=== PATIENT | female | born 1955 | race Caucasian/White ===

== ENCOUNTER → 2016-07-13 | Outpatient (CLI) | payer OTHER ==
--- NOTE | 2016-07-13 12:24 | DIAGNOSTIC IMAGING REPORT ---
KUB CLINICAL HISTORY: Constipation. FINDINGS: 2 AP supine abdominal radiographs are correlated with abdominal ultrasound dated 09/22/2015. There is a nonobstructed abdominal bowel gas pattern noting moderate colonic fecal retention. No evidence of intraperitoneal free air is seen on these supine views. Calcified phleboliths are noted in the pelvis. There is no radiographic evidence of nephrolithiasis. The skeletal structures are osteopenic. There is lumbosacral spondylosis and scoliosis. The bony pelvis appears intact. IMPRESSION: Nonobstructed abdominal bowel gas pattern noting moderate colonic fecal retention. Electronically signed by: Ej Cardona M.D. 07/13/2016 12:23 PM Dictated Date/Time: 07/13/2016 12:21 PM
[2016-07-13 17:53] LABS: BLOOD UREA NITROGEN 9 mg/dl (7-18); BUN/CREATININE RATIO 11.8 (10-20); CALCIUM 8.8 mg/dl (8.5-10.1); CARBON DIOXIDE 26 mmol/L (21-32); CHLORIDE 101 mmol/L (98-107); CREATININE 0.79 mg/dl (0.60-1.20); GLUCOSE 77 mg/dl (70-99); POTASSIUM 4.4 mmol/L (3.5-5.1); SODIUM 136 mmol/L (136-145)
== END | disposition home or self-care (01) ==
LOC: C.RADPV 11:42
PROVIDERS: ATTEND Nurse Practitioner
DX: K59.00 Constipation, unspecified (principal); E78.00 Pure hypercholesterolemia, unspecified

== ENCOUNTER → 2016-10-17 | Outpatient (CLI) | payer SELFPAY | END | disposition home or self-care (01) | LOC: C.LAB 08:25 | PROVIDERS: ATTEND Family Medicine ==

== ENCOUNTER → 2017-04-04 | Outpatient (CLI) | payer OTHER ==
[2017-04-04 17:46] LABS: BASO % 0.2 %; BASO ABS # 0.01 K/uL (0-0.2); COMPLETE YES; EOS % 1.2 %; HEMATOCRIT 39.8 % (37-47); IG% 0.2 %; LYMPH % 28.2 %; MEAN CORPUSCULAR HEMOGLOBIN 30.5 pg (25-34); MEAN CORPUSCULAR HGB CONC 33.9 g/dl (32-36); MEAN PLATELET VOLUME 9.8 fL (7.4-10.4); MONO % 8.1 %; NEUT % 62.1 %; PLATELET COUNT 314 K/uL (130-400); RED BLOOD COUNT 4.42 M/uL (4.2-5.4); WHITE BLOOD COUNT 6.03 K/uL (4.8-10.8)
[2017-04-04 18:02] LABS: ALT/SGPT 27 U/L (12-78); AST/SGOT 20 U/L (15-37); BLOOD UREA NITROGEN 16 mg/dl (7-18); BUN/CREATININE RATIO 22.4 (10-20); CALCIUM 8.8 mg/dl (8.5-10.1); CARBON DIOXIDE 28 mmol/L (21-32); CHLORIDE 102 mmol/L (98-107); GLUCOSE 90 mg/dl (70-99); POTASSIUM 4.3 mmol/L (3.5-5.1); SODIUM 136 mmol/L (136-145)
[2017-04-04 18:04] LABS: ALB/GLOB RATIO 0.9 (0.9-2); ALKALINE PHOSPHATASE 70 U/L (45-117)
== END | disposition home or self-care (01) ==
LOC: C.LABPVFM 14:29
PROVIDERS: ATTEND Psychiatry & Neurology Neurology
DX: G35 Multiple sclerosis (principal)

== ENCOUNTER 2021-05-01 13:43 | Observation (INO) ==
[2021-05-01] MEDS ORDERED: SODIUM CHLORIDE 0.9% 1000ML 500 ML IV ONE (14:45)
--- NOTE | 2021-05-01 15:23 | Emergency Department Note ---
Impression & Plan COVID-19, Syncope and collapse, Closed right ankle fracture ED Provider Note INFORMANT: Patient ED PROVIDER(S): Liam Reyes MD CHIEF COMPLAINT: Syncope PLAN: Disposition: Admitted Condition: Good Outpatient prescription management: none Referral: None MEDICAL DECISION MAKING: Patient presented emergency room noting syncopal episode. She is Covid positive. Unfortunately with one of the episode she did fall and fractured her ankle. She was in a splint. This was taken down and her ankle was examined. There were no open wounds to suggest open fracture. She had moderate swelling of the lateral malleolus. X-ray imaging did confirm the distal fibula fracture. No dislocation. The patient had an unremarkable ECG and cardiac monitoring. Chest x-ray was unremarkable. CT imaging was performed that she had an elevated D-dimer. It was signs of Covid pneumonia but no sign of thromboembolic disease. Given the multiple syncopal episode the patient to be admitted. Consultation was [facility] with [facility], Dr. Holloway. Patient was admitted. Triage Nursing notes reviewed and agree them. Vital Signs: reviewed and remarkable for no significant abnormalities Differential diagnosis: Complication of COVID-19, fracture, dislocation, vasovagal event, dehydration, infection, hypoglycemia, electrolyte abnormalities, cardiac sources, intracerebral event, pulmonary embolism, seizure, toxicologic, neurologic, as well as other pathologies. Diagnostics interpreted by me: ECG: Twelve-lead ECG reveals a normal sinus rhythm at 69 bpm. Low voltage QRS. No interval prolongation. No ST elevation or depression. Cardiac Monitoring: Cardiac monitoring ordered by me: The patient was placed on continuous cardiac monitoring and observed. It revealed a normal sinus rhythm at 79beats per minute without ectopy or evidence of dysrhythmia. Imaging studies: X-ray and CT scan as above. HPI: The patient is a 66 year old female who presents to the Emergency Room with complaints of syncope. This started yesterday and is noted to be the second episode.. The patient also notes the following associated symptoms, right ankle pain and swelling. The patient has splinted for relieving factors. Current pain is rated as 4/10. Patient states that she was diagnosed with COVID-19 on the 18th, 3 days ago. She is been feeling lightheaded and weak. She passed out and injured her right ankle. She went to [facility] and was diagnosed with an ankle fracture today. She had a second syncopal episode. She does note a mild abrasion to the left knee but no other injury sustained. 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 Pt denies headache, fevers, chills, diaphoresis, visual changes, neck pain, chest pain, breathing difficulties, nausea, vomiting, abdominal pain, back pain, melena, hematochezia, urinary symptoms, numbness, focal weakness, lymphadenopathy, rash, or other complaints. ROS: See above HPI for pertinent positives & negatives. A total of 10 systems reviewed and were otherwise negative. PAST MEDICAL HISTORY:See Below , high cholesterol PAST SURGICAL HISTORY:See Below, FAMILY HISTORY:See Below SOCIAL HISTORY:See Below, HOME MEDICATIONS:See Below ALLERGIES:See Below VITALS:See Below PHYSICAL EXAMINATION: GENERAL: Awake, alert, well-appearing, in no distress HENT: Normocephalic, atraumatic. Oropharynx unremarkable. EYES: Normal conjunctiva. Sclera non-icteric. NECK: Inspection normal. Non-tender. Supple. No nuchal rigidity. FROM. No masses. RESPIRATORY: Clear to auscultation. No wheezes. No rales. Normal respiratory effort. CARDIAC: Normal rate. Normal rhythm. No murmurs. No rubs. Extremities warm and well perfused. Pulses equal. No JVD. GI: Soft, non-distended. No tenderness to palpation. No rebound or guarding. No masses. RECTAL: Deferred. MUSCULOSKELETAL: Upper extremities are atraumatic. Chest examination reveals no tenderness. The back is symmetrical on inspection without obvious abnormality. There is no CVA tenderness to palpation. No joint edema. There is a small abrasion noted to the anterior aspect of the left knee. The remainder of the left lower extremity is unremarkable and atraumatic. No bony tenderness there. Examination the right lower extremity reveals ecchymosis, swelling and tenderness over the lateral aspect of the right ankle. There is tenderness of the right malleoli are prominence. No foot tenderness or fifth metatarsal tenderness. No proximal fibula tenderness. Remainder of the right lower extremity is atraumatic and nontender. LOWER EXTREMITIES: Calves are equal size bilaterally and non-tender. No other edema except as noted above No other discoloration. NEURO: Normal sensorium. No sensory or motor deficits noted. SKIN: No rash or jaundice noted. Liam Reyes MD Past Med/Surg History Medical History Hemorrhoids Hyperlipidemia Impacted cerumen of right ear Plantar fascia syndrome Screening-pulmonary TB Urinary symptom or sign Surgical History H/O breast surgery History of surgical procedure Family History Mother Cancer Lymphoma Hodgkin's lymphoma Father Cardiac disorder Myocardial infarction Denies family history of Ovarian cancer Prostate cancer Breast cancer Colorectal cancer Social History Smoking Status: Never smoker Second Hand Exposure: No; Hx Alcohol Use: No Hx Substance Use: No Preferred Language: [place] marital status: Current Living Situation: Spouse current occupational status: employed current occupation: [employer] Feels Safe at Home: Yes caffeine: Yes (coffee) 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 Care, Regularly: Yes Physical Activity Frequency: Does not Exercise Seatbelt Use: always Sunscreen Use: Yes Allergies Allergies Allergy/AdvReac Type Severity Reaction Status Date / Time Sulfa (Sulfonamide Allergy Verified 05/01/21 15:40 Antibiotics) Home Meds Home Medications Medication Instructions Recorded Confirmed sennosides 8.6 mg tablet 8.6 mg PO DAILY PRN 10/01/20 05/01/21 omega-3 fatty acids 1,000 mg 1,000 mg PO DAILY 10/26/20 05/01/21 capsule (Fish Oil Concentrate) zinc sulfate 50 mg zinc (220 mg) 50 mg PO DAILY 10/26/20 05/01/21 capsule (Orazinc) Ivermectin 250 mg PO DAILY 05/01/21 05/01/21 ascorbic acid (vitamin C) 500 mg 500 mg PO QDL 05/01/21 05/01/21 tablet (C-500) guaifenesin 600 mg tablet, 600 mg PO BID 05/01/21 05/01/21 extended release 12 hr (Mucinex) Previous Rx's Medication Instructions Recorded cholecalciferol (vitamin D3) 125 5,000 units PO DAILY #30 cap 01/13/19 mcg (5,000 unit) capsule hydrocortisone 2.5 % topical cream 1 appln TOP TID PRN #20 gm 12/23/19 escitalopram oxalate 20 mg tablet 20 mg PO DAILY #30 tab 01/28/21 interferon beta-1a 30 mcg/0.5 mL 30 mcg IM WK #1 ea 04/01/21 intramuscular pen kit (Avonex) Results & Data (ED) Vital Signs Vital Signs - 24 hr 05/01/21 14:07 05/01/21 14:10 05/01/21 14:30 Temperature 37.3 C Temperature Source Oral Pulse Rate 79 72 79 Pulse Rate from SpO2 Sensor 72 79 Pulse Rhythm Respiratory Rate 20 17 17 Blood Pressure 142/55 H 123/74 Blood Pressure Mean 84 90 Pulse Oximetry 97 97 98 Oxygen Delivery Method Room Air Sepsis Recent Fever Within 48 Hours No Sepsis New/Unexplained Change in Mental Status No Sepsis Action Taken by Nursing No Action Required 05/01/21 14:44 05/01/21 15:00 05/01/21 15:30 Temperature Temperature Source Pulse Rate 82 67 78 Pulse Rate from SpO2 Sensor 67 76 Pulse Rhythm Regular Respiratory Rate 18 8 L 23 Blood Pressure 109/74 129/55 L Blood Pressure Mean 85 79 Pulse Oximetry 98 99 99 Oxygen Delivery Method Room Air Sepsis Recent Fever Within 48 Hours Sepsis New/Unexplained Change in Mental Status Sepsis Action Taken by Nursing 05/01/21 16:00 05/01/21 16:30 05/01/21 17:00 Temperature Temperature Source Pulse Rate 73 72 67 Pulse Rate from SpO2 Sensor 73 72 67 Pulse Rhythm Respiratory Rate 19 18 20 Blood Pressure 134/69 134/72 128/98 Blood Pressure Mean 90 92 108 Pulse Oximetry 99 100 98 Oxygen Delivery Method Sepsis Recent Fever Within 48 Hours Sepsis New/Unexplained Change in Mental Status Sepsis Action Taken by Nursing 05/01/21 18:00 05/01/21 18:30 05/01/21 19:00 Temperature Temperature Source Pulse Rate 79 80 Pulse Rate from SpO2 Sensor Pulse Rhythm Respiratory Rate 22 22 19 Blood Pressure Blood Pressure Mean Pulse Oximetry Oxygen Delivery Method Sepsis Recent Fever Within 48 Hours Sepsis New/Unexplained Change in Mental Status Sepsis Action Taken by Nursing 05/01/21 19:30 05/01/21 20:00 05/01/21 20:30 Temperature Temperature Source Pulse Rate 80 81 79 Pulse Rate from SpO2 Sensor 80 79 Pulse Rhythm Respiratory Rate 17 18 19 Blood Pressure 150/99 H 154/95 H Blood Pressure Mean 116 114 Pulse Oximetry 98 97 Oxygen Delivery Method Sepsis Recent Fever Within 48 Hours Sepsis New/Unexplained Change in Mental Status Sepsis Action Taken by Nursing 05/01/21 21:00 05/01/21 21:30 Temperature Temperature Source Pulse Rate 82 79 Pulse Rate from SpO2 Sensor 81 Pulse Rhythm Respiratory Rate 25 H 22 Blood Pressure 136/93 153/85 H Blood Pressure Mean 107 107 Pulse Oximetry 97 Oxygen Delivery Method Sepsis Recent Fever Within 48 Hours Sepsis New/Unexplained Change in Mental Status Sepsis Action Taken by Nursing Laboratory Data Result diagrams: 05/01/21 15:30 05/01/21 15:30 Lab Results 05/01/21 05/01/21 05/01/21 Range/Units 15:30 15:30 15:30 WBC 3.67 L (4.8-10.8) K/uL RBC 4.52 (4.2-5.4) M/uL Hgb 13.8 (12.0-16.0) g/dL Hct 40.3 (37-47) % MCV 89.2 (80-100) fL MCH 30.5 (25-34) pg MCHC 34.2 (32-36) g/dL RDW Std Deviation 40.1 (36.4-46.3) fL RDW Coeff of Anthony 12.4 (11.5-14.5) % Plt Count 182 (130-400) K/uL MPV 9.8 (7.4-10.4) fL Immature Gran % (Auto) 0.3 % Neut % (Auto) 84.7 % Lymph % (Auto) 10.9 % [place] % (Auto) 4.1 % Eos % (Auto) 0.0 % Baso % (Auto) 0.0 % Neut # (Auto) 3.11 (1.4-6.5) K/uL Lymph # (Auto) 0.40 L (1.2-3.4) K/uL [place] # (Auto) 0.15 (0.11-0.59) K/uL Eos # (Auto) 0.00 (0-0.5) K/uL Baso # (Auto) 0.00 (0-0.2) K/uL Immature Gran # (Auto) 0.01 (0.00-0.02) K/uL D-Dimer 2350 H* (0-500) ug/L FEU Sodium 132 L (136-145) mmol/L Potassium 4.2 (3.5-5.1) mmol/L Chloride 97 L (98-107) mmol/L Carbon Dioxide 25 (21-32) mmol/L Anion Gap 10.0 (3-11) BUN 9 (7-18) mg/dl Creatinine 0.64 (0.6-1.2) mg/dl Est Cr Clr Drug Dosing Not Reportable Est GFR ( Amer) 109.3 ml/min Est GFR (Non-Af Amer) 94.3 ml/min BUN/Creatinine Ratio 13.8 (10-20) Glucose 101 H (70-99) mg/dl Calcium 8.2 L (8.5-10.1) mg/dl Magnesium 2.3 (1.8-2.4) mg/dl Total Bilirubin 0.5 (0.2-1) mg/dl AST 27 (15-37) U/L ALT 24 (12-78) U/L Alkaline Phosphatase 80 (45-117) U/L Troponin I < 0.015 (0-0.045) ng/ml Total Protein 7.1 (6.4-8.2) gm/dl Albumin 3.4 (3.4-5.0) gm/dl Globulin 3.7 (2.5-4.0) gm/dl Albumin/Globulin Ratio 0.9 (0.9-2) TSH 1.170 (0.300-4.500) uIu/ml Urine Color Urine Appearance (Clear) Urine pH (4.5-7.5) Ur Specific [place] (1.000-1.030) Urine Protein (Negative) Urine Glucose (UA) (Negative) Urine Ketones (Negative) Urine Blood (Negative) Urine Nitrite (Negative) Urine Bilirubin (Negative) Urine Urobilinogen (Negative) Ur Leukocyte Esterase (Negative) Urine WBC (Auto) (0-5) /hpf Urine RBC (Auto) (0-4) /hpf U Hyaline Cast (Auto) (0-5) /lpf U Epithel Cells (Auto) (0-5) /lpf Urine Bacteria (Auto) (Negative) 05/01/21 Range/Units 16:50 WBC (4.8-10.8) K/uL RBC (4.2-5.4) M/uL Hgb (12.0-16.0) g/dL Hct (37-47) % MCV (80-100) fL MCH (25-34) pg MCHC (32-36) g/dL RDW Std Deviation (36.4-46.3) fL RDW Coeff of Anthony (11.5-14.5) % Plt Count (130-400) K/uL MPV (7.4-10.4) fL Immature Gran % (Auto) % Neut % (Auto) % Lymph % (Auto) % [place] % (Auto) % Eos % (Auto) % Baso % (Auto) % Neut # (Auto) (1.4-6.5) K/uL Lymph # (Auto) (1.2-3.4) K/uL [place] # (Auto) (0.11-0.59) K/uL Eos # (Auto) (0-0.5) K/uL Baso # (Auto) (0-0.2) K/uL Immature Gran # (Auto) (0.00-0.02) K/uL D-Dimer (0-500) ug/L FEU Sodium (136-145) mmol/L Potassium (3.5-5.1) mmol/L Chloride (98-107) mmol/L Carbon Dioxide (21-32) mmol/L Anion Gap (3-11) BUN (7-18) mg/dl Creatinine (0.6-1.2) mg/dl Est Cr Clr Drug Dosing Est GFR ( Amer) ml/min Est GFR (Non-Af Amer) ml/min BUN/Creatinine Ratio (10-20) Glucose (70-99) mg/dl Calcium (8.5-10.1) mg/dl Magnesium (1.8-2.4) mg/dl Total Bilirubin (0.2-1) mg/dl AST (15-37) U/L ALT (12-78) U/L Alkaline Phosphatase (45-117) U/L Troponin I (0-0.045) ng/ml Total Protein (6.4-8.2) gm/dl Albumin (3.4-5.0) gm/dl Globulin (2.5-4.0) gm/dl Albumin/Globulin Ratio (0.9-2) TSH (0.300-4.500) uIu/ml Urine Color Yellow Urine Appearance Clear (Clear) Urine pH 6.5 (4.5-7.5) Ur Specific [place] 1.007 (1.000-1.030) Urine Protein Negative (Negative) Urine Glucose (UA) Negative (Negative) Urine Ketones Trace H (Negative) Urine Blood Negative (Negative) Urine Nitrite Positive A (Negative) Urine Bilirubin Negative (Negative) Urine Urobilinogen Negative (Negative) Ur Leukocyte Esterase Negative (Negative) Urine WBC (Auto) 1-5 (0-5) /hpf Urine RBC (Auto) 0-4 (0-4) /hpf U Hyaline Cast (Auto) 0 (0-5) /lpf U Epithel Cells (Auto) 10-20 H (0-5) /lpf Urine Bacteria (Auto) 2+ H (Negative) Administered Medications Discontinued Medications Sodium Chloride (Nss 1000ml) 500 mls @ 999 mls/hr IV .Q31M ONE Stop: 05/01/21 15:15 Last Infusion: 05/01/21 16:19 Dose: 0 mls/hr Documented by: [id number] Infusion: 05/01/21 16:08 Dose: 0 mls/hr Documented by: [id number] Admin: 05/01/21 15:33 Dose: 999 mls/hr Documented by: [id number] Sodium Chloride (Nss 1000ml) 1,000 mls @ 125 mls/hr IV .Q8H STA Stop: 05/01/21 22:44 Last Admin: 05/01/21 21:22 Dose: 125 mls/hr Documented by: [id number] Ioversol (Optiray 320 125ml) 118 ml IV ONCE ONE Stop: 05/01/21 17:39 Last Admin: 05/01/21 17:38 Dose: 118 ml Documented by: [id number] Imaging Data Radiologist's Impression: Ankle X-Ray 05/01/21 14:44 XR ankle RT min 3V routine HISTORY: 66 years-old Female fall, righ lateral malleolar TTP. ?fx acute pain of the right ankle status post trauma COMPARISON: None TECHNIQUE: 3 views of the right ankle FINDINGS: Mildly demineralized appearance the bones. There is an acute oblique fracture of the distal fibular metaphysis with fracture extension to the level of the ankle mortise. Lateral displacement of 2 mm. Moderate anterolateral soft tissue swelling with small joint effusion. Mild osteoarthritis of the midfoot with corticated ossifications of the dorsal navicular and talar neck. IMPRESSION: Acute minimally displaced oblique fracture of the distal fibula. ACT 112: Negative or not required by law. The above report was generated using voice recognition software. It may contain grammatical, syntax or spelling errors. Electronically signed by: Glenn Foster M.D. 05/01/2021 3:31 PM Chest X-Ray 05/01/21 14:44 XR chest 1V portable HISTORY: 66 years-old Female weakness acute weakness COMPARISON: Chest radiograph 07/04/2018 TECHNIQUE: Portable AP view of the chest FINDINGS: The cardiomediastinal and hilar silhouettes are within normal limits. 1.2 cm nodular density projects over the lateral left upper lung is likely external to the patient. No pneumothorax, pleural effusion, airspace consolidation or overt pulmonary edema. Linear lucency at the left lung apex is likely artifactual. No acute fracture. IMPRESSION: No acute process. ACT 112: Negative or not required by law. The above report was generated using voice recognition software. It may contain grammatical, syntax or spelling errors. Electronically signed by: Glenn Foster M.D. 05/01/2021 3:37 PM Chest CTA 05/01/21 16:32 CT angio chest PE protocol CT DOSE: 357.77 mGy.cm HISTORY: 66 years-old Female with PE. Acute shortness breath with weakness. COVID Positive. TECHNIQUE: Multiple CTA images of the chest were obtained after the intravenous administration of 118 ml Optiray. Coronal and sagittal MIPS were obtained from the axial data set and were submitted for review. All measurements were obtained according to NASCET criteria. A dose lowering technique was utilized adhering to the principles of ALARA. COMPARISON: Chest radiograph of same day, CT abdomen and pelvis 01/31/2019 FINDINGS: CTA: The heart is mildly enlarged. No pericardial effusion. Mild fusiform dilation of the descending thoracic measures 4.0 x 4.0 cm. No dissection. Unremarkable pulmonary artery. No pulmonary emboli. CT CHEST: No thyroid nodule or adenopathy. The inferior right lung base is only partially imaged. No pneumothorax or pleural effusion. Subpleural patchy bilateral groundglass opacities are noted within a multilobar distribution. No suspicious pulmonary nodules or masses. The central airways are patent. The spleen measures the upper limits of normal in size. Hypodense foci suggestive of cysts are noted within liver measuring up to 3.3 cm. Unremarkable soft tissues. There is no acute fracture. Mild compression of the T11 segment is likely chronic. IMPRESSION: 1. No pulmonary emboli. 2. Mild patchy bilateral subpleural predominant groundglass opacities are compatible with viral pneumonia. 3. Mild fusiform dilation of the ascending thoracic aorta, 4.0 x 4.0 cm. ACT 112: Negative or not required by law. The above report was generated using voice recognition software. It may contain grammatical, syntax or spelling errors. Electronically signed by: Glenn Foster M.D. 05/01/2021 6:12 PM Discharge Plan Visit Data Chief Complaint: Ankle Pain Stated Complaint: fracture ED Provider: Liam Reyes Discharge Problem: COVID-19, Syncope and collapse, Closed right ankle fracture Forms Stand Alone Forms: [facility] Prescriptions Prescriptions: No Action cholecalciferol (vitamin D3) 5,000 unit capsule 5,000 units PO DAILY Qty: 30 RF: 5 escitalopram oxalate 20 mg tablet 20 mg PO DAILY Qty: 30 RF: 5 Avonex 30 mcg/0.5 mL pen injector kit 30 mcg IM WK Qty: 1 RF: 11 sennosides 8.6 mg tablet 8.6 mg PO DAILY PRN (Reason: Constipation) RF: 0 omega-3 fatty acids [Fish Oil Concentrate] 1,000 mg capsule 1,000 mg PO DAILY RF: 0 zinc sulfate [Orazinc] 50 mg zinc (220 mg) capsule 50 mg PO DAILY RF: 0 hydrocortisone 2.5 % cream 1 appln TOP TID PRN (Reason: skin irritation) Qty: 20 RF: 1 ascorbic acid (vitamin C) [C-500] 500 mg Tablet 500 mg PO QDL RF: 0 guaifenesin [Mucinex] 600 mg Tablet Extended Release 12hr 600 mg PO BID RF: 0 Ivermectin 250 mg PO DAILY RF: 0 Referrals Referrals: Mally Leblanc CRNP [Primary Care Provider] -
--- NOTE | 2021-05-01 15:32 | XRay Report ---
XR ankle RT min 3V routine HISTORY: 66 years-old Female fall, righ lateral malleolar TTP. ?fx acute pain of the right ankle sta tus post trauma COMPARISON: None TECHNIQUE: 3 views of the right ankle FINDINGS: Mildly demineralized appearance the bones. There is an acute oblique fracture of the distal fibular m etaphysis with fracture extension to the level of the ankle mortise. Lateral displacement of 2 mm. Mo derate anterolateral soft tissue swelling with small joint effusion. Mild osteoarthritis of the midfo ot with corticated ossifications of the dorsal navicular and talar neck. IMPRESSION: Acute minimally displaced oblique fracture of the distal fibula. ACT 112: Negative or not required by law. The above report was generated using voice recognition software. It may contain grammatical, syntax o r spelling errors. Electronically signed by: Glenn Foster M.D. 05/01/2021 3:31 PM
--- NOTE | 2021-05-01 15:39 | XRay Report ---
XR chest 1V portable HISTORY: 66 years-old Female weakness acute weakness COMPARISON: Chest radiograph 07/04/2018 TECHNIQUE: Portable AP view of the chest FINDINGS: The cardiomediastinal and hilar silhouettes are within normal limits. 1.2 cm nodular density projects over the lateral left upper lung is likely external to the patient. No pneumothorax, pleural effusio n, airspace consolidation or overt pulmonary edema. Linear lucency at the left lung apex is likely ar tifactual. No acute fracture. IMPRESSION: No acute process. ACT 112: Negative or not required by law. The above report was generated using voice recognition software. It may contain grammatical, syntax o r spelling errors. Electronically signed by: Glenn Foster M.D. 05/01/2021 3:37 PM
[2021-05-01 15:47] LABS: Hematocrit (blood only) 40.3 % (37-47); Hemoglobin 13.8 g/dL (12.0-16.0); Immature Granulocytes # (auto) 0.01 K/uL (0.00-0.02); Immature Granulocytes % (auto) 0.3 %; Lymphocytes % (auto) 10.9 %; Mean Corpuscular Hemoglobin 30.5 pg (25-34); Mean Corpuscular Hgb Conc 34.2 g/dL (32-36); Mean Corpuscular Volume 89.2 fL (80-100); Mean Platelet Volume 9.8 fL (7.4-10.4); Monocytes # (auto) 0.15 K/uL (0.11-0.59); Monocytes % (auto) 4.1 %; Neutrophils # (auto) 3.11 K/uL (1.4-6.5); Neutrophils % (auto) 84.7 %; Platelet Count 182 K/uL (130-400); RDW Coefficient of Variation 12.4 % (11.5-14.5); RDW Standard Deviation 40.1 fL (36.4-46.3); Red Blood Count 4.52 M/uL (4.2-5.4); White Blood Count 3.67 K/uL (4.8-10.8)
[2021-05-01 16:01] LABS: Alanine Aminotransferase 24 U/L (12-78); Albumin Level 3.4 gm/dl (3.4-5.0); Aspartate Aminotransferase 27 U/L (15-37); BUN Creatinine Ratio 13.8 (10-20); Blood Urea Nitrogen 9 mg/dl (7-18); Calcium 8.2 mg/dl (8.5-10.1); Carbon Dioxide 25 mmol/L (21-32); Chloride 97 mmol/L (98-107); Est GFR (African American) 109.3 ml/min; Est GFR (Non-African American) 94.3 ml/min; Glucose 101 mg/dl (70-99); Magnesium 2.3 mg/dl (1.8-2.4); Potassium 4.2 mmol/L (3.5-5.1); Sodium 132 mmol/L (136-145)
[2021-05-01] MEDS: SODIUM CHLORIDE 0.9% 1000ML 1,000 ML IV STA ×2 (16:08→21:22)
[2021-05-01 16:11] LABS: Albumin Globulin Ratio 0.9 (0.9-2); Alkaline Phosphatase 80 U/L (45-117); Bilirubin,Total 0.5 mg/dl (0.2-1); Globulin 3.7 gm/dl (2.5-4.0); Total Protein 7.1 gm/dl (6.4-8.2); Troponin I < 0.015 ng/ml (0-0.045)
[2021-05-01 16:17] LABS: D Dimer 2350 ug/L FEU (0-500)
[2021-05-01 17:15] LABS: Appearance Urine Clear (Clear); Bacteria Urine Automated 2+ (Negative); Bilirubin Urine Negative (Negative); Blood Urine Negative (Negative); Cast Urine Automated 0 /lpf (0-5); Color Urine Yellow; Glucose Urine UA Negative (Negative); Ketones Urine Trace (Negative); Leukocyte Esterase Urine Negative (Negative); Nitrite Urine Positive (Negative); Protein Urine Negative (Negative); RBC Urine Automated 0-4 /hpf (0-4); Specific Gravity Urine 1.007 (1.000-1.030); Urobilinogen Urine Negative (Negative); pH Urine 6.5 (4.5-7.5)
[2021-05-01] MEDS ORDERED: OPTIRAY 320 125ml IV ONE (17:38)
--- NOTE | 2021-05-01 18:13 | CT Scan Report ---
CT angio chest PE protocol CT DOSE: 357.77 mGy.cm HISTORY: 66 years-old Female with PE. Acute shortness breath with weakness. COVID Positive. TECHNIQUE: Multiple CTA images of the chest were obtained after the intravenous administration of 118 ml Optiray. Coronal and sagittal MIPS were obtained from the axial data set and were submitted for review. All measurements were obtained according to NASCET criteria. A dose lowering technique was u tilized adhering to the principles of ALARA. COMPARISON: Chest radiograph of same day, CT abdomen and pelvis 01/31/2019 FINDINGS: CTA: The heart is mildly enlarged. No pericardial effusion. Mild fusiform dilation of the descending thora cic measures 4.0 x 4.0 cm. No dissection. Unremarkable pulmonary artery. No pulmonary emboli. CT CHEST: No thyroid nodule or adenopathy. The inferior right lung base is only partially imaged. No pneumothor ax or pleural effusion. Subpleural patchy bilateral groundglass opacities are noted within a multilob ar distribution. No suspicious pulmonary nodules or masses. The central airways are patent. The spleen measures the upper limits of normal in size. Hypodense foci suggestive of cysts are noted within liver measuring up to 3.3 cm. Unremarkable soft tissues. There is no acute fracture. Mild comp ression of the T11 segment is likely chronic. IMPRESSION: 1. No pulmonary emboli. 2. Mild patchy bilateral subpleural predominant groundglass opacities are compatible with viral pneum onia. 3. Mild fusiform dilation of the ascending thoracic aorta, 4.0 x 4.0 cm. ACT 112: Negative or not required by law. The above report was generated using voice recognition software. It may contain grammatical, syntax o r spelling errors. Electronically signed by: Glenn Foster M.D. 05/01/2021 6:12 PM
--- NOTE | 2021-05-01 20:31 | History & Physical Report ---
Date of Service May 01, 2021 Assessment & Plan (1) Syncope and collapse: Plan: Patient is a 66 year old female with PMHx Multiple Sclerosis, Depression, IBS, presenting today with history of passing out x2 the past 2 nights in addition to fracture of her R distal fibula. Of note, patient has recent diagnosis of COVID- 19 infection with symptoms starting on 04/27/21 and has taken 2 doses of Ivermectin (dose unsure) that she had received from a open hearth door liner. Syncope -Admit to telemetry for constant monitoring -Repeat EKG in AM -Echo in AM -?secondary to weakness secondary to current COVID-19 infection -While unlikely from 2 doses of ivermectin, side effects may include tachycardia or orthostatic hypotension - will DC ivermectin COVID-19 infection -Symptoms starting 04/27/21 -Discontinue Ivermectin -With elevated Ddimer 2350 -Stat read of US LE negative for DVT -Chest CTA negative for PE, mainly noting viral process in lungs in addition to mild fusiform dilation of the ascending thoracic aorta 4x4cm -Patient without hypoxia or need for O2 at this time -Will hold on Remdesivir or decadron at this time -Continue Vitamin D Distal R Fibular Fx -Acute minimall displaced oblique fracture of the distal fibula on XR -Non-weight bearing until seen by ortho -Ortho consulted, appreciate recs Positive Urine with Nitrates -In the setting of immunocompromised patient -No overt symptoms of UTI -Will hold on treatment at this time -URine culture pending Multiple Sclerosis -Continue home Avenox q weekly Dispo: PCU covid unit FEN: NPO until evaluated by ortho DVT: Lovenox 40mg qd Code: CPR appropriate, do not intubate (2) Closed right ankle fracture: (3) COVID-19: History of Present Illness Chief Complaint: Syncope Primary Care Provider: RUBEN Mcdonough Patient is a 66 year old female with PMHx Multiple Sclerosis, Depression, IBS, presenting today with history of passing out x2 the past 2 nights in addition to fracture of her R distal fibula. Of note, patient has recent diagnosis of COVID- 19 infection with symptoms starting on 04/27/21 and has taken 2 doses of Ivermectin (dose unsure) that she had received from a open hearth door liner. She notes that 2 days ago she experienced a syncopal episode when she fell in the middle of the night while going to the bathroom. She notes that at that time she had hurt her R leg and had been concerned it was broken since then. She notes that she went to [facility] x2 since they were not doing imaging on Sunday when she initially went. She notes that she was scheduled to see ortho later this week, but that due to having another syncopal episode today felt it was more appropriate to present to the ED. She notes that when having these episodes of passing out she cannot recall it happening and notes that she goes from standing to realizing she is on the ground. She does not note any headache, dizziness, chest pain, SOB, visual changes prior to the events. She also notes that in regards to her COVID-19 infection, she has not been vaccinated, and had taken 2 doses of Ivermectin as she had a friend who had taken it during a severe case of COVID-19 and had felt that it improved their symptoms. Patient also notes a history MS, but has not had a flare up for several years now while taking Avonex. She currently only notes pain in her R ankle. She denies any fever, chills, SOB, chest pain, abdominal pain, nausea, vomiting, diarrhea, hematuria, dysuria. Med Hx: Multiple Sclerosis, Depression, IBS Surg Hx: Negative Soc Hx: Denies tobacco, alcohol, illicit drug use Fam Hx: Father MO at age 35 Allergies Allergy/AdvReac Type Severity Reaction Status Date / Time Sulfa (Sulfonamide Allergy Verified 05/01/21 15:40 Antibiotics) Home Medications Medication Instructions Recorded Confirmed Type cholecalciferol (vitamin D3) 125 5,000 units PO DAILY #30 cap 01/13/19 05/01/21 Rx mcg (5,000 unit) capsule hydrocortisone 2.5 % topical cream 1 appln TOP TID PRN #20 gm 12/23/19 05/01/21 Rx sennosides 8.6 mg tablet 8.6 mg PO DAILY PRN 10/01/20 05/01/21 History omega-3 fatty acids 1,000 mg 1,000 mg PO DAILY 10/26/20 05/01/21 History capsule (Fish Oil Concentrate) zinc sulfate 50 mg zinc (220 mg) 50 mg PO DAILY 10/26/20 05/01/21 History capsule (Orazinc) escitalopram oxalate 20 mg tablet 20 mg PO DAILY #30 tab 01/28/21 05/01/21 Rx interferon beta-1a 30 mcg/0.5 mL 30 mcg IM WK #1 ea 04/01/21 05/01/21 Rx intramuscular pen kit (Avonex) Ivermectin 250 mg PO DAILY 05/01/21 05/01/21 History ascorbic acid (vitamin C) 500 mg 500 mg PO QDL 05/01/21 05/01/21 History tablet (C-500) guaifenesin 600 mg tablet, 600 mg PO BID 05/01/21 05/01/21 History extended release 12 hr (Mucinex) Past Med/Surg History Medical History Hemorrhoids Hyperlipidemia Impacted cerumen of right ear Plantar fascia syndrome Screening-pulmonary TB Urinary symptom or sign Surgical History H/O breast surgery History of surgical procedure Cauterization of hemorrhoids Family History Mother Cancer Lymphoma Hodgkin's lymphoma Father Cardiac disorder Myocardial infarction Denies family history of Ovarian cancer Prostate cancer Breast cancer Colorectal cancer Social History Smoking Status: Never smoker Second Hand Exposure: No; Hx Alcohol Use: No Hx Substance Use: No Preferred Language: Ethiopian Communication Ability: Effective 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 Beliefs That Will Affect Care: None marital status: Current Living Situation: Spouse current occupational status: employed current occupation: [employer] Feels Safe at Home: Yes caffeine: Yes (coffee) Dental Care, Regularly: Yes Physical Activity Frequency: Does not Exercise Seatbelt Use: always Sunscreen Use: Yes Assistive Devices: None Review of Systems Review of Systems: All systems reviewed & are unremarkable except as noted in Subjective Physical Exam Constitutional: WD/WN, vitals as above Eyes: PERRL, conjunctivae normal, anicteric sclerae ENMT: external ear and nose normal, oropharynx normal Neck: trachea midline, no thyromegaly Respiratory: normal respiratory effort and able to speak in complete sentences; no respiratory distress, no labored breathing and no cough Auscultation: + rales (lower lobes b/l, worse on R than L ); no crackles, no rhonchi and no wheezes Cardiovascular: RRR, no murmur, no edema Vessels: no JVD Gastrointestinal (Abdomen): normal bowel sounds, soft, nontender, no hepatosplenomegaly Musculoskeletal: Head/Neck/Chest: normocephalic and head atraumatic; head normal to inspection LLE with abrasion on the knee RLE with TTP at the lateral ankle. Currently wrapped in erik bandage. Sensation intact. dorsalis pedis pulse intact. Plantar and dorsiflexion of toes strength 5/5. Skin: no rashes, warm and dry Psychiatric: A+Ox3, euthymic affect Results & Data Results & Data ([facility]) Vital Signs (Past 12 Hours) Vital Signs Temp Pulse Resp BP Pulse Ox 05/01/21 20:00 81 18 154/95 H 05/01/21 19:30 80 17 150/99 H 98 05/01/21 19:00 80 19 05/01/21 18:30 79 22 05/01/21 18:00 22 05/01/21 17:00 67 20 128/98 98 05/01/21 16:30 72 18 134/72 100 05/01/21 16:00 73 19 134/69 99 05/01/21 15:30 78 23 129/55 L 99 05/01/21 15:00 67 8 L 109/74 99 05/01/21 14:44 82 18 98 05/01/21 14:30 79 17 123/74 98 05/01/21 14:10 72 17 97 05/01/21 14:07 37.3 C 79 20 142/55 H 97 Supervising Physician Co-Signing Physician Notes Attending addendum: I have physically seen this patient, have supervised the medical residents activities, and agree with the H&P unless as otherwise noted. Assessment and Plan: Syncope and collapse- The patient will be admitted to telemetry for serial cardiac enzymes, serial EKG's, cardiac rhythm monitoring and a 2-D echocardiogram with Dopplers. Differential includes: Generalized weakness secondary to COVID-19 infection, side effect of ivermectin, other COVID-19 infection- No pulmonary symptoms at this time Hold on Decadron or remdesivir Distal right fibular fracture- Minimally displaced oblique fracture Consult orthopedic surgery Remaining orders and notations as noted Resident Activity Tracking Resident Involvement: Resident Care Provided Care Provided: Adult Hospital Medicine
[2021-05-02] MEDS: ACETAMINOPHEN 325 MG TAB PO PRN ×2 (05:20→21:06)
[2021-05-02 05:46] LABS: Hematocrit (blood only) 35.3 % (37-47); Hemoglobin 12.2 g/dL (12.0-16.0); Lymphocytes # (auto) 0.58 K/uL (1.2-3.4); Mean Corpuscular Hgb Conc 34.6 g/dL (32-36); Mean Corpuscular Volume 89.8 fL (80-100); Mean Platelet Volume 9.5 fL (7.4-10.4); Monocytes # (auto) 0.13 K/uL (0.11-0.59); Monocytes % (auto) 6.3 %; Neutrophils # (auto) 1.36 K/uL (1.4-6.5); Neutrophils % (auto) 65.7 %; Platelet Count 169 K/uL (130-400); RDW Coefficient of Variation 12.4 % (11.5-14.5); RDW Standard Deviation 40.6 fL (36.4-46.3); Red Blood Count 3.93 M/uL (4.2-5.4); White Blood Count 2.07 K/uL (4.8-10.8)
[2021-05-02 06:18] LABS: Albumin Level 2.8 gm/dl (3.4-5.0); BUN Creatinine Ratio 12.2 (10-20); Calcium 8.2 mg/dl (8.5-10.1); Creatinine Clr Calc Pharmacy 103.9 ml/min; Est GFR (Non-African American) 95.8 ml/min; Magnesium 2.3 mg/dl (1.8-2.4); Potassium 3.9 mmol/L (3.5-5.1)
[2021-05-02 06:20] LABS: Albumin Globulin Ratio 0.8 (0.9-2); Bilirubin,Total 0.5 mg/dl (0.2-1); Globulin 3.4 gm/dl (2.5-4.0); Total Protein 6.2 gm/dl (6.4-8.2)
--- NOTE | 2021-05-02 08:05 | Ultrasound Report ---
BILATERAL LOWER EXTREMITY VENOUS DOPPLER CLINICAL HISTORY: Covid. Elevated d-dimer. COMPARISON STUDY: No previous studies for comparison. TECHNIQUE: Sonography of the deep venous system of the bilateral lower extremities was performed. Co mpression and augmentation were evaluated. FINDINGS: The bilateral common femoral, superficial femoral and popliteal veins were compressible. A ugmentation was normal. Flow was shown within the deep calf vessels. IMPRESSION: No evidence of deep venous thrombus within the bilateral lower extremities. ACT 112: Negative or not required by law. Electronically signed by: Pilo Rangel M.D. 05/02/2021 8:04 AM
[2021-05-02] MEDS: ESCITALOPRAM OXALATE 20 MG TAB PO SCH (09:00)
[2021-05-02] MEDS: CHOLECALCIFEROL 1,000 UNITS 25 MCG TAB PO SCH (09:00)
--- NOTE | 2021-05-02 12:15 | Orthopedic Consultation ---
Date of Consultation May 02, 2021 Assessment & Plan (1) Closed right ankle fracture: Right distal fibular fracture. X-rays have been reviewed with Dr. Torres. Plan will be to have orthotics fit her with a high tide walking boot. She will need to be nonweightbearing on the right lower extremity. Patient will require crutches or walker for ambulation. No surgical intervention needed at this time. She can follow-up with Dr. Torres or his physician bioinformatics assistant Noel Horvath in the next 10 to 14 days for recheck. Thank you for this consult. History of Present Illness Reason for Consultation: Right distal fibular fracture Attending Physician: Abdoulaye Cardozo, DO History of Present Illness Patient is a 66 year old female with PMHx Multiple Sclerosis, Depression, IBS, presenting today with history of passing out x2 the past 2 nights. Patient states that approximately 2 days prior to her admission she ended up passing out and when she had awoken, she had pain in her right ankle. She was having some difficulty ambulating. She was planning on going to an urgent care center but they did not have radiological capabilities over the weekend. She decided to come into the emergency room and be seen. She is Covid positive and I believe the test was on 04/27/2021. A CTA was performed showing likely viral pneumonia. X-ray of the right ankle did show a minimally displaced right distal fibular fracture. We have been asked to see her for her fibular fracture. Currently the patient is awake and alert and in no acute distress. Pain is controlled. Allergies Allergy/AdvReac Type Severity Reaction Status Date / Time Sulfa (Sulfonamide Allergy Verified 05/01/21 15:40 Antibiotics) Home Medications Medication Instructions Recorded Confirmed Type cholecalciferol (vitamin D3) 125 5,000 units PO DAILY #30 cap 01/13/19 05/01/21 Rx mcg (5,000 unit) capsule hydrocortisone 2.5 % topical cream 1 appln TOP TID PRN #20 gm 12/23/19 05/01/21 Rx sennosides 8.6 mg tablet 8.6 mg PO DAILY PRN 10/01/20 05/01/21 History omega-3 fatty acids 1,000 mg 1,000 mg PO DAILY 10/26/20 05/01/21 History capsule (Fish Oil Concentrate) zinc sulfate 50 mg zinc (220 mg) 50 mg PO DAILY 10/26/20 05/01/21 History capsule (Orazinc) escitalopram oxalate 20 mg tablet 20 mg PO DAILY #30 tab 01/28/21 05/01/21 Rx interferon beta-1a 30 mcg/0.5 mL 30 mcg IM WK #1 ea 04/01/21 05/01/21 Rx intramuscular pen kit (Avonex) Ivermectin 250 mg PO DAILY 05/01/21 05/01/21 History ascorbic acid (vitamin C) 500 mg 500 mg PO QDL 05/01/21 05/01/21 History tablet (C-500) guaifenesin 600 mg tablet, 600 mg PO BID 05/01/21 05/01/21 History extended release 12 hr (Mucinex) Patient History Medical History Hemorrhoids Hyperlipidemia Impacted cerumen of right ear Plantar fascia syndrome Screening-pulmonary TB Urinary symptom or sign Surgical History H/O breast surgery History of surgical procedure Cauterization of hemorrhoids Family History Mother Cancer Lymphoma Hodgkin's lymphoma Father Cardiac disorder Myocardial infarction Denies family history of Ovarian cancer Prostate cancer Breast cancer Colorectal cancer Social History Smoking Status: Never smoker Second Hand Exposure: No; Hx Alcohol Use: No Hx Substance Use: No Preferred Language: Pashto Communication Ability: Effective 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 Toes are pink and warm and she is able to move the toes quite well. Sensation is intact. She has some mild swelling over the lateral aspect of her ankle with some slight ecchymosis. She is tender on palpation over the lateral malleolus. There is no tenderness over the medial malleolus at this time. No pain on palpation of the dorsum of the foot or the plantar aspect. Neurovascular appears intact. There is no gross motor or sensory loss seen at this time. Results & Data ([facility]) Vital Signs (Past 12 Hours) Vital Signs Temp Pulse Pulse Resp BP BP Pulse Ox 05/02/21 07:28 36.7 C 71 18 117/68 94 05/02/21 07:00 36.2 C L 70 18 117/68 96 05/02/21 06:02 76 15 127/65 95 05/02/21 04:25 78 19 151/67 H 94 05/02/21 03:00 80 21 05/02/21 02:30 83 21 122/83 93 05/02/21 02:00 78 21 131/62 97 05/02/21 01:30 80 13 127/56 L 97 05/02/21 01:00 76 19 133/59 L 96 05/02/21 00:30 77 20 138/65 95 Diagnostic Findings Patient:AFSHAN EDDY Admit Date:05/01/21 MR#:[id number] Address1:[address] [place] [address] Acct ID:[id number] Address2: Date:1955 [facility] Zip:[place] [address] Age:66 Location:ED Sex:F Room/Bed: Att Phy: Diagnosis:fracture Disha Phy:Mally Leblanc CRNP Service Date:05/01/21 [facility] Phy: Interpreting Phy:Glenn FosterAdmit Phy: Ordering Phy:Liam Reyes MD cc: ~ XR ankle RT min 3V routine HISTORY: 66 years-old Female fall, righ lateral malleolar TTP. ?fx acute pain of the right ankle status post trauma COMPARISON: None TECHNIQUE: 3 views of the right ankle FINDINGS: Mildly demineralized appearance the bones. There is an acute oblique fracture of the distal fibular metaphysis with fracture extension to the level of the ankle mortise. Lateral displacement of 2 mm. Moderate anterolateral soft tissue swelling with small joint effusion. Mild osteoarthritis of the midfoot with corticated ossifications of the dorsal navicular and talar neck. IMPRESSION: Acute minimally displaced oblique fracture of the distal fibula.
--- NOTE | 2021-05-02 14:26 | Hospitalist Progress Note ---
Date of Service May 02, 2021 Assessment & Plan (1) Closed right ankle fracture: Plan: orthopedics recommends boot, NWB will ask PT/OT to see her, likely okay to go home tomorrow (2) Syncope and collapse: Plan: unclear etiology, no issues while here continue on tele, consider echo get PT/OT to see how she does on her feet (3) COVID-19: Plan: no hypoxemia, no need for treatment with dexamethasone negative pressure isolation Admission and Anticipated Discharge Date Admission Date: May 01, 2021 Subjective patient doing well, no pain in ankle since boot placed breathing well, no cough, no dyspnea, stable on room air orthopedics recommends non operative management will monitor on tele overnight, but likely good for discharge tomorrow will ask PT/OT to see her to make sure she can manage at home with the boot Review of Systems Review of Systems: All systems reviewed & are unremarkable except as noted in Subjective Musculoskeletal: + joint pain (right ankle) Physical Exam Physical Exam: General: well developed, well nourished, no acute distress, comfortable Neck: supple, trachea midline, normal thyroid Lungs: clear to auscultation bilaterally, normal respiratory effort, no accessory muscle use, no distress Heart: regular S1 and S2, no murmur, peripheral pulses normal, capillary refill normal, no edema Abdomen: soft, NT, ND, + BS, no hepatomegaly, normal to percussion Extremities: right ankle in walking boot, no cyanosis, no petechiae, strength is 5/5 bilaterally Neuro: awake, cooperative, moves all extremities, no focal motor deficits, CN II-XII intact, sensation in extremities intact, normal speech Skin: warm, dry, no rash, normal turgor Psych: Awake, alert oriented x 3, euthymic affect Results & Data Results & Data ([facility]) Vital Signs (Past 12 Hours) Vital Signs Temp Pulse Pulse Resp BP BP Pulse Ox 05/02/21 07:28 36.7 C 71 18 117/68 94 05/02/21 07:00 36.2 C L 70 18 117/68 96 05/02/21 06:02 76 15 127/65 95 05/02/21 04:25 78 19 151/67 H 94 05/02/21 03:00 80 21 05/02/21 02:30 83 21 122/83 93 Laboratory Results Laboratory Results - last 24 hr 05/02/21 05/02/21 05:21 05:21 WBC 2.07 L RBC 3.93 L Hgb 12.2 Hct 35.3 L MCV 89.8 MCH 31.0 MCHC 34.6 RDW Std Deviation 40.6 RDW Coeff of Anthony 12.4 Plt Count 169 MPV 9.5 Immature Gran % (Auto) 0.0 Neut % (Auto) 65.7 Lymph % (Auto) 28.0 Johnson % (Auto) 6.3 Eos % (Auto) 0.0 Baso % (Auto) 0.0 Neut # (Auto) 1.36 L Lymph # (Auto) 0.58 L Johnson # (Auto) 0.13 Eos # (Auto) 0.00 Baso # (Auto) 0.00 Immature Gran # (Auto) 0.00 Sodium 136 Potassium 3.9 Chloride 106 Carbon Dioxide 25 Anion Gap 5.0 BUN 7 Creatinine 0.61 Est Cr Clr Drug Dosing 103.9 Est GFR ( Amer) 111.0 Est GFR (Non-Af Amer) 95.8 BUN/Creatinine Ratio 12.2 Glucose 91 Calcium 8.2 L Magnesium 2.3 Total Bilirubin 0.5 AST 27 ALT 20 Alkaline Phosphatase 70 Total Protein 6.2 L Albumin 2.8 L Globulin 3.4 Albumin/Globulin Ratio 0.8 L Medications Administered Current Inpatient Medications Acetaminophen (Acetaminophen 325 Mg Tab) 650 mg PO Q4H PRN PRN Reason: Pain or Fever Stop: 06/01/21 00:36 Last Admin: 05/02/21 21:06 Dose: 650 mg Documented by: Escitalopram Oxalate (Escitalopram Oxalate 20 Mg Tab) 20 mg PO DAILY AHMET Stop: 06/01/21 08:59 Last Admin: 05/02/21 09:00 Dose: 20 mg Documented by: Miscellaneous (Interferon Beta-1a [Avonex] Order Awaiting Action) 1 ea N/A QS AHMET Stop: 06/01/21 15:59 Last Admin: 05/02/21 19:11 Dose: Not Given Documented by: Vitamin D (Cholecalciferol 1,000 Units 25 Mcg Tab) 5,000 units PO DAILY AHMET Stop: 06/01/21 08:59 Last Admin: 05/02/21 09:00 Dose: 5,000 units Documented by: PG Care Time/CCT Total # of Minutes Spent Total Time Spent with Patient: Total time spent is greater than 50% in coordination of care (as documented) at patient's floor/unit and/or counseling patient: Coding Level of Care Code 17133 Subseq Obs Care Lvl 2 Diagnoses Closed right ankle fracture S82.891A Syncope and collapse R55 COVID-19 U07.1
--- NOTE | 2021-05-02 19:17 | XCELERA ---
[id number]
--- NOTE | 2021-05-03 03:36 | Billing Data ---
Date of Service May 03, 2021 Coding Level of Care Code INT OBSERVATION CARE 70M LVL 3
--- NOTE | 2021-05-03 05:41 | Electrocardiogram Report ---
Test Reason : Blood Pressure : / mmHG Vent. Rate : 069 BPM Atrial Rate : 069 BPM P-R Int : 150 ms QRS Dur : 078 ms QT Int : 430 ms P-R-T Axes : 028 -42 013 degrees QTc Int : 460 ms Normal sinus rhythm Left axis deviation Low voltage QRS Inferior infarct , age undetermined Poor R wave progression, consider anterior NE vs. lead placement vs. LVH Abnormal ECG No previous ECGs available Confirmed by Juan Carlos Berry ([id number]) on 05/03/2021 5:41:03 AM Referred By: REFERRED SELF Confirmed By:Juan Carlos Berry
[2021-05-03] MEDS: ESCITALOPRAM OXALATE 20 MG TAB PO SCH (08:55)
[2021-05-03] MEDS: CHOLECALCIFEROL 1,000 UNITS 25 MCG TAB PO SCH (08:55)
[2021-05-03] MEDS ORDERED: cefTRIAXone SODIUM 2,000 MG in DEXTROSE 5% 50 ML IV SCH (10:00)
--- NOTE | 2021-05-04 06:13 | Electrocardiogram Report ---
Test Reason : Blood Pressure : / mmHG Vent. Rate : 070 BPM Atrial Rate : 070 BPM P-R Int : 156 ms QRS Dur : 084 ms QT Int : 422 ms P-R-T Axes : 023 -39 017 degrees QTc Int : 455 ms Normal sinus rhythm Left axis deviation Low voltage QRS Inferior infarct (cited on or before 01-MAY-2021) Anterior infarct Abnormal ECG When compared with ECG of 01-MAY-2021 14:09, No significant change Confirmed by Juan Carlos Berry ([id number]) on 05/04/2021 6:12:55 AM Referred By: REFERRED SELF Confirmed By:Juan Carlos Berry
--- NOTE | 2021-05-10 09:13 | Discharge Summary ---
Date of Service May 03, 2021 Admission HPI Per Admitting Provider Patient is a 66 year old female with PMHx Multiple Sclerosis, Depression, IBS, presenting today with history of passing out x2 the past 2 nights in addition to fracture of her R distal fibula. Of note, patient has recent diagnosis of COVID- 19 infection with symptoms starting on 04/27/21 and has taken 2 doses of Ivermectin (dose unsure) that she had received from a business unit director. She notes that 2 days ago she experienced a syncopal episode when she fell in the middle of the night while going to the bathroom. She notes that at that time she had hurt her R leg and had been concerned it was broken since then. She notes that she went to [facility] x2 since they were not doing imaging on Sunday when she initially went. She notes that she was scheduled to see ortho later this week, but that due to having another syncopal episode today felt it was more appropriate to present to the ED. She notes that when having these episodes of passing out she cannot recall it happening and notes that she goes from standing to realizing she is on the ground. She does not note any headache, dizziness, chest pain, SOB, visual changes prior to the events. She also notes that in regards to her COVID-19 infection, she has not been vaccinated, and had taken 2 doses of Ivermectin as she had a friend who had taken it during a severe case of COVID-19 and had felt that it improved their symptoms. Patient also notes a history MS, but has not had a flare up for several years now while taking Avonex. She currently only notes pain in her R ankle. She denies any fever, chills, SOB, chest pain, abdominal pain, nausea, vomiting, diarrhea, hematuria, dysuria. Med Hx: Multiple Sclerosis, Depression, IBS Surg Hx: Negative Soc Hx: Denies tobacco, alcohol, illicit drug use Fam Hx: Father MD at age 35 Principal Diagnosis Closed right ankle fracture after syncope Discharge Exam General: well developed, well nourished, no acute distress, comfortable Neck: supple, trachea midline, normal thyroid Lungs: clear to auscultation bilaterally, normal respiratory effort, no accessory muscle use, no distress Heart: regular S1 and S2, no murmur, peripheral pulses normal, capillary refill normal, no edema Abdomen: soft, NT, ND, + BS, no hepatomegaly, normal to percussion Extremities: right ankle in walking boot, no cyanosis, no petechiae, strength is 5/5 bilaterally Neuro: awake, cooperative, moves all extremities, no focal motor deficits, CN II-XII intact, sensation in extremities intact, normal speech Skin: warm, dry, no rash, normal turgor Psych: Awake, alert oriented x 3, euthymic affect Discharge Data Allergies Allergy/AdvReac Type Severity Reaction Status Date / Time Sulfa (Sulfonamide Allergy Verified 05/01/21 15:40 Antibiotics) Consultations 05/02/21 00:37 Consult Orthopedic Surgery Routine Ordered Studies 05/01/21 16:32 CT angio chest PE protocol Stat 05/01/21 20:45 US venous doppler [facility] Urgent Hospital Course (1) Closed right ankle fracture: orthopedics recommends boot, [facility] will ask PT/OT to see her, cleared for discharge, will get a scooter follow up with ortho in 2 weeks (2) Syncope and collapse: unclear etiology, no issues while here continue on tele, no arrhythmia get PT/OT to see how she does on her feet -- she is stable to go home (3) COVID-19: no hypoxemia, no need for treatment with dexamethasone negative pressure isolation stop Ivermectin referred to monoclonal antibody clinic (4) UTI (urinary tract infection): E coli, harman sensitive given Rocephin send home on short course of Keflex Total Time Total Time Spent Total Time Spent (In Minutes): 32 minutes Discharge Plan Discharge Items Patient Disposition: Home - Home Health Services Reason For Visit: fracture Discharge Diagnosis: Right fibula fracture UTI - E coli COVID 19 infection Condition on Discharge: Good Goals: follow up with orthopedics in 10-14 days complete 2 more days of antibiotics for UTI stay well nourished, well hydrated Activity: Per Instructions section Weightbearing: Right non-weightbearing Weightbearing Comment: with crutches or knee roller Non-emergency contact: Primary Care Provider Call non-emergency contact if: you have any medication questions Follow-up/Referrals: Mally Leblanc CRNP [Primary Care Provider] - 05/11/21 10:30 am (one week) Cj Torres DO [Surgeon] - 05/17/21 1:45 pm (Follow up in 10-14 days for a recheck of your fibular fracture please get a frerral from PCP office before your visit) Diet: Regular Addtl Attending Provider Instructions: Medications: recommend you stop taking Ivermectin as it may have caused your syncope and collapse - CEPHALEXIN: 500mg twice a day, start tomorrow morning, only need two days, you received Rocephin IV while here, lasts 24 hours Closed ankle fracture: continue with high ankle boot at all times, do not remove until orthopedics removes it, keep it dry non-weight bearing to right leg, use crutches or knee walker to get around follow up with [facility] in 10-14 days, Dr. Torres or his PA Noel Horvath COVID 19 infection subtle changes seen in the lungs on CT of the chest, no pulmonary embolism recommend that you stay well nourished, well hydrated, well rested monitor yourself for any worsening breathing, get a finger pulse oximeter to make sure your saturations are > 90% return to the hospital if you are hypoxic (saturations < 90%) I will put in a referral for monoclonal antibodies as this is the best early intervention and you could still be within the window of treatment they will contact you UTI: E coli, no severe symptoms, recommend three days of treatment, Keflex can start tomorrow morning Syncope and collapse: could have been due to COVID or UTI or taking Ivermectin (side effect) no issue son telemetry while here stay well hydrated and change positions slowly at home Pending Studies at Discharge: No Stand-Alone Forms: My [facility] Xopik, Smoking Cessation Medications and DC Order Prescriptions: Continued cholecalciferol (vitamin D3) 5,000 unit capsule 5,000 units PO DAILY Qty: 30 RF: 5 escitalopram oxalate 20 mg tablet 20 mg PO DAILY Qty: 30 RF: 5 Avonex 30 mcg/0.5 mL pen injector kit 30 mcg IM WK Qty: 1 RF: 11 sennosides 8.6 mg tablet 8.6 mg PO DAILY PRN (Reason: Constipation) RF: 0 omega-3 fatty acids [Fish Oil Concentrate] 1,000 mg capsule 1,000 mg PO DAILY RF: 0 zinc sulfate [Orazinc] 50 mg zinc (220 mg) capsule 50 mg PO DAILY RF: 0 hydrocortisone 2.5 % cream 1 appln TOP TID PRN (Reason: skin irritation) Qty: 20 RF: 1 ascorbic acid (vitamin C) [C-500] 500 mg Tablet 500 mg PO QDL RF: 0 guaifenesin [Mucinex] 600 mg Tablet Extended Release 12hr 600 mg PO BID RF: 0 Discontinued Ivermectin 250 mg PO DAILY RF: 0 Discharge Orders: Discharge Order (Routine); Ordered 05/03/21 Ordered By: Abdoulaye Cardozo Admission Data Admit Date/Time: 05/01/21 20:45 Attending Provider: Abdoulaye Cardozo Admit Provider: Cas Partida Primary Care Provider: Mally Leblanc Other Providers: Cj Torres ; [facility] Other Interventions: Discharge Summary Assessment (RN) Last Done: 05/03/21 13:40 Coding Level of Care Code 08188 OBS Care - Discharge Diagnoses Closed right ankle fracture S82.891A Syncope and collapse R55 COVID-19 U07.1 UTI (urinary tract infection) N39.0
== END 2021-05-03 18:00 | disposition home health service (06) ==
LOC: ED 13:43 → EDINP 13:43 → SUATTDRO 20:45 → 2E 23:40